=== PATIENT | male | born 1995 | race Caucasian/White ===

== ENCOUNTER 2020-08-23 20:30 | Emergency (ER) | payer OTHER ==
[~2020-08-23] VITALS: Ht 177.8 cm; Wt 68.0 kg
== END 2020-08-23 21:56 | disposition short-term general hospital (02) ==
LOC: ED 20:30
DX: S11.91XA Laceration without foreign body of unspecified part of neck, initial encounter (principal); Z91.5 Personal history of self-harm; X58.XXXA Exposure to other specified factors, initial encounter; Y93.89 Activity, other specified; Y92.89 Other specified places as the place of occurrence of the external cause; Y99.8 Other external cause status